=== PATIENT | male | born 1985 | race Asian ===

== ENCOUNTER 2021-02-16 22:15 | Emergency (ER) | payer MEDICAID, OTHER ==
[~2021-02-16] VITALS: Ht 160 cm; Wt 75.0 kg
[2021-02-17 02:33] VITALS: BP 135/89
[2021-02-17] MEDS ORDERED: METH-797 PO (08:34)
[2021-02-17] MEDS ORDERED: acetaminophen 325mg tablet PO ONE (08:35)
== END 2021-02-17 08:59 | disposition home or self-care (01) ==
LOC: ER 22:16
DX: S16.1XXA Strain of muscle, fascia and tendon at neck level, initial encounter (principal); V89.2XXA Person injured in unspecified motor-vehicle accident, traffic, initial encounter; Y93.89 Activity, other specified; Y92.89 Other specified places as the place of occurrence of the external cause; Y99.8 Other external cause status
CPT/HCPCS: 99283